=== PATIENT | female | born 1950 | race Caucasian/White ===

== ENCOUNTER → 2018-12-03 | Day surgery (SDC) | payer MEDICARE ==
[2018-11-27 12:40] VITALS: BMI 33.2
[~2018-12-03] MED LIST: LIDOCAINE 1% INJ 10MG/ML (20 ML MDV) SQ ONE; MIDAZOLAM 2 MG/2 ML VIAL IV ONE; SODIUM CHLORIDE 0.9% 1,000 ML IV SCH; ceFAZolin IN SWFI 2 GM/20 ML SYRINGE IVP ONE
[2018-12-03 10:52] VITALS: RESP 18; TEMP 98.1
--- NOTE | 2018-12-03 12:29 | P.PCN ---
Preoperative Diagnosis: Loop explant under sedation and local anesthesia. Patient was brought to the EP lab in a fasting state. Written informed consent was obtained prior to the procedure. The subcutaneous device was successfully explanted under local anesthesia. Preoperative antibiotics were administered. The wound was closed in layers and dressed per protocol. Result: Successful loop monitor explantation. Patient underwent EP procedure under conscious sedation/moderate sedation, monitoring of the level of consciousness and physiologic parameters including but not limited to vital signs and oxygenation. Patient tolerated the procedure well without any acute complications. Start time: 1208 Stop time: 1216
[2018-12-03 13:19] VITALS: BP 133/65; PULSE 74
== END | disposition home or self-care (01) ==
LOC: CATHEP 10:06
PROVIDERS: ATTEND Internal Medicine Clinical Cardiac Electrophysiology
DX: I63.9 Cerebral infarction, unspecified (principal); Z79.82 Long term (current) use of aspirin; Z79.899 Other long term (current) drug therapy; E78.5 Hyperlipidemia, unspecified; F17.210 Nicotine dependence, cigarettes, uncomplicated; Z91.040 Latex allergy status
CPT/HCPCS: 33286; J2250; J2001; J0690

== ENCOUNTER → 2018-12-03 | Outpatient (CLI) | payer MEDICARE ==
[2018-12-03 11:13] LABS: Basophils # (A) 0.1 k/uL (0-0.2); Basophils % (A) 1 %; Eosinophils # (A) 0.2 k/uL (0-0.7); Eosinophils % (A) 3 %; HCT 47.6 % (34.0-46.0); Lymphocytes # (A) 1.7 k/uL (1.0-4.8); Lymphocytes % (A) 23 %; MCHC 31.5 g/dL (31.0-37.0); Mean Platelet Volume 7.7; Monocytes # (A) 0.5 k/uL (0-1.0); Monocytes % (A) 6 %; Neutrophils # (A) 4.8 k/uL (1.3-7.7); Neutrophils % (A) 65 %; Platelet Count 261 k/uL (150-450); RBC 5.18 m/uL (3.80-5.40); RDW 13.9 % (11.5-15.5); WBC 7.4 k/uL (3.8-10.6)
[2018-12-03 19:29] LABS: Iron Saturation 18.27 (12.00-45.00)
== END ==
LOC: LABWHC1 10:11
PROVIDERS: ATTEND Family Medicine
DX: D64.9 Anemia, unspecified (principal)
CPT/HCPCS: 36415; 82728; 83540; 83550; 85025

== ENCOUNTER 2023-01-03 16:11 | Emergency (ER) | payer MEDICARE ==
[2023-01-03] MEDS ORDERED: PANTOPRAZOLE 40 MG/10 ML VIAL IVP STA (17:37)
[2023-01-03] MEDS ORDERED: SODIUM CHLORIDE 0.9% 1,000 ML IV ONE (17:37)
[2023-01-03 18:01] VITALS: RESP 17
--- NOTE | 2023-01-03 18:05 | XR ---
EXAMINATION TYPE: XR chest 2V DATE OF EXAM: 01/03/2023 5:53 PM COMPARISON: Chest radiographs from 09/09/2015 TECHNIQUE: XR chest 2V Frontal and lateral views of the chest. CLINICAL INDICATION:Female, 72 years old with history of gi bleed; FINDINGS: Lungs/Pleura: There is flattening of the diaphragm with increased lucency of the lungs. No evidence o f pneumothorax or focal consolidation. The left pleural effusion. Pulmonary vascularity: Unremarkable. Heart/mediastinum: Cardiomediastinal silhouette is unremarkable. Atherosclerotic calcifications are seen in the aorta. Musculoskeletal: No acute osseous pathology. IMPRESSION: Left pleural effusion, otherwise No acute cardiopulmonary disease/process. COPD changes.
[2023-01-03 18:18] LABS: Basophils % (A) 0 %; Eosinophils % (A) 0 %; HCT 44.3 % (34.0-46.0); HGB 15.4 gm/dL (11.4-16.0); Lymphocytes # (A) 1.1 k/uL (1.0-4.8); Lymphocytes % (A) 9 %; MCH 30.7 pg (25.0-35.0); MCHC 34.7 g/dL (31.0-37.0); MCV 88.5 fL (80.0-100.0); Mean Platelet Volume 9.4; Monocytes # (A) 0.8 k/uL (0-1.0); Monocytes % (A) 7 %; Neutrophils % (A) 82 %; Platelet Count 273 k/uL (150-450); RBC 5.01 m/uL (3.80-5.40); RDW 12.4 % (11.5-15.5); WBC 12.2 k/uL (3.8-10.6)
[2023-01-03 18:27] LABS: INR 1.1 (<1.2); Partial Thromboplastin Time 22.1 sec (22.0-30.0); Prothrombin Time 11.6 sec (9.0-12.0)
[2023-01-03] MEDS ORDERED: ONDANSETRON 4 MG/2 ML VIAL IVP STA (18:30)
[2023-01-03] MEDS ORDERED: MORPHINE SULFATE 2 MG/ML SYRINGE IVP ONE (18:30)
[2023-01-03 18:31] LABS: Albumin 3.6 g/dL (3.5-5.0); Potassium 3.8 mmol/L (3.5-5.1); Total Bilirubin 0.6 mg/dL (0.2-1.3); Total Protein 6.9 g/dL (6.3-8.2)
[2023-01-03 19:19] VITALS: PULSE 106
--- NOTE | 2023-01-03 19:36 | ED ---
General Adult HPI - General Chief complaint: GI Bleed Stated complaint: vomiting Time Seen by Provider: 01/03/23 17:28 Source: patient, RN notes reviewed Mode of arrival: ambulatory Limitations: no limitations - History of Present Illness Initial comments: 72-year-old female presents to the emergency department with a chief complaint of hematemesis 3 days. She is complaining of dark black coffee ground vomit. She denies any dizziness, lightheadedness, chest pain, shortness of breath. She is complaining of epigastric pain. She reports that she has not had a bowel movement in 3 days as well. She denies any melena, hematochezia. - Related Data Home Medications Medication Instructions Recorded Confirmed Omeprazole [PriLOSEC] 10 mg PO AC-BRKFST 09/09/15 12/03/18 Albuterol Sulfate [Proair Hfa] 1 - 2 puff INHALATION Q6HR PRN 11/27/18 12/03/18 Aspirin [Adult Low Dose Aspirin EC] 81 mg PO DAILY 11/27/18 12/03/18 Cetirizine HCl [Zyrtec] 10 mg PO DAILY 11/27/18 12/03/18 Cholecalciferol (Vitamin D3) 2,000 unit PO DAILY 11/27/18 12/03/18 [Vitamin D3] Ferrous Sulfate [Iron (65 MG 1 tab PO WESA 11/27/18 12/03/18 Elemental)] Latanoprost/Pf [Latanoprost 0.005% 1 drop BOTH EYES HS 11/27/18 12/03/18 Eye Drop] Lovastatin [Mevacor] 10 mg PO HS 11/27/18 12/03/18 Magnesium 400 mg PO HS 11/27/18 Metoprolol Succinate [Toprol XL] 25 mg PO HS 11/27/18 12/03/18 Montelukast [Singulair] 10 mg PO HS 11/27/18 12/03/18 Allergies Allergy/AdvReac Type Severity Reaction Status Date / Time Iodinated Contrast Media Allergy Itching Verified 12/03/18 10:38 [Iodinated Contrast Media - IV Dye] shellfish derived [Shellfish] Allergy Itching Verified 01/03/23 17:01 Review of Systems ROS Statement: Those systems with pertinent positive or pertinent negative responses have been documented in the HPI. ROS Other: All systems not noted in ROS Statement are negative. 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 TERRY, LOOP RECORDER 09/09/15 Past Anesthesia/Blood Transfusion Reactions: No Reported Reaction Type of Cardiac Device: Loop Past Psychological History: No Psychological Hx Reported Smoking Status: Current every day smoker Past Alcohol Use History: None Reported Past Drug Use History: None Reported - Past Family History Mother Family Medical History: Cancer, Hypertension Additional Family Medical History / Comment(s): thyroid cancer and thyroid irradiation, Sister(s) Family Medical History: COPD Brother(s) Family Medical History: No Reported History Daughter(s) Family Medical History: No Reported History General Exam Limitations: no limitations General appearance: alert, in no apparent distress Head exam: Present: atraumatic, normocephalic, normal inspection Eye exam: Present: normal appearance, PERRL, EOMI. Absent: scleral icterus, conjunctival injection, periorbital swelling ENT exam: Present: normal exam, mucous membranes moist Neck exam: Present: normal inspection. Absent: tenderness, meningismus, lymphadenopathy Respiratory exam: Present: normal lung sounds bilaterally. Absent: respiratory distress, wheezes, rales, rhonchi, stridor Cardiovascular Exam: Present: regular rate, normal rhythm, normal heart sounds. Absent: systolic murmur, diastolic murmur, rubs, gallop, clicks GI/Abdominal exam: Present: soft, tenderness (mild epigastric), normal bowel sounds. Absent: distended, guarding, rebound, rigid Extremities exam: Present: normal inspection, full ROM, normal capillary refill. Absent: tenderness, pedal edema, joint swelling, calf tenderness Back exam: Present: normal inspection Neurological exam: Present: alert, oriented X3, CN II-XII intact Psychiatric exam: Present: normal affect, normal mood Skin exam: Present: warm, dry, intact, normal color. Absent: rash Course Vital Signs 01/03/23 01/03/23 01/03/23 16:57 18:00 19:19 Temperature 98.4 F Pulse Rate 125 H 112 H 106 H Respiratory 20 17 17 Rate Blood Pressure 96/73 121/68 111/70 O2 Sat by Pulse 97 95 94 L Oximetry 01/03/23 20:24 Temperature 98.0 F Pulse Rate 106 H Respiratory 17 Rate Blood Pressure 110/61 O2 Sat by Pulse 94 L Oximetry - Reevaluation(s) Reevaluation #1: 01/03/23 19:[address] Jaeger, ER physician at [facility] who agrees and accepts the patient for admission Reevaluation #2: 01/03/23 19:[address] Jaeger, ER attending physician who agrees and accepts the patient for ER to ER transfer 01/03/23 19:[address] Newman, GI specialist who agrees and accepts the patient for GI consult EKG Findings - EKG Comments: EKG Findings:: I interpreted the following EKG performed at 18:39. Heart rate 10 2 bpm and sinus tachycardia. DE interval 157, QRS duration 71, QT/QTc 337/396 Medical Decision Making - Medical Decision Making Was pt. sent in by a medical professional or institution (, PA, IMPACT HAMMER OPERATOR, urgent care, hospital, or usp...) When possible be specific @ -[No] Did you speak to anyone other than the patient for history (EMS, parent, family, police, friend...)? What history was obtained from this source @ -[No] Did you review nursing and triage notes (agree or disagree)? Why? @ -[I reviewed and agree with nursing and triage notes] Were old charts reviewed (outside hosp., previous admission, EMS record, old EKG, old radiological studies, urgent care reports/EKG's, usp records)? Report findings @ -[No old charts were reviewed] Differential Diagnosis (chest pain, altered mental status, abdominal pain women, abdominal pain men, vaginal bleeding, weakness, fever, dyspnea, syncope, headache, dizziness, GI bleed, back pain, seizure, CVA, palpatations, mental health, musculoskeletal)? @ -[not applicable] EKG interpreted by me (3pts min.). @ -[As above] X-rays interpreted by me (1pt min.). @ -X-ray negative for any acute internal pleural process or evidence of perforation CT interpreted by me (1pt min.). @ -[None done] U/S interpreted by me (1pt. min.). @ -[None done] What testing was considered but not performed or refused? (CT, X-rays, U/S, labs)? Why? @ -[None] What meds were considered but not given or refused? Why? @ -[None] Did you discuss the management of the patient with other professionals ( professionals i.e. , PA, IMPACT HAMMER OPERATOR, lab, RT, psych nurse, social worker psychiatric, tea and spice supervisor, teacher, consumer loan officer, community case manager)? Give summary @ -[No] Was smoking cessation discussed for >3mins.? @ -[No] Was critical care preformed (if so, how long)? @ -[No] Were there social determinants of health that impacted care today? How? (Homelessness, low income, unemployed, alcoholism, drug addiction, t ransportation, low edu. Level, literacy, decrease access to med. care, intermediate, rehab)? @ -[No] Was there de-escalation of care discussed even if they declined (Discuss DNR or withdrawal of care, Hospice)? DNR status @ -[No] What co-morbidities impacted this encounter? (DM, HTN, Smoking, COPD, CAD, Cancer, CVA, ARF, Chemo, Hep., AIDS, mental health diagnosis, sleep apnea, morbid obesity)? @ -[None] Was patient admitted / discharged? Hospital course, mention meds given and route, prescriptions, significant lab abnormalities, going to OR and other pertinent info. @ -Transfer to [facility]. This is a 72 presents to the emergency department with upper GI bleed. Patient had a thorough history and physical exam performed on the ED. Physical exam reveals heart rate tachycardic in the 110's. Lungs clear to auscultation bilaterally abdomen is soft however there is mild epigastric tenderness. Patient was given 1 L IV fluids and Protonix, morphine and Zofran while in the ED with symptomatic relief. Patient's hemoglobin is 14.8. Other lab work unremarkable. Due to the mechanism of the patient's chief complaint and no GI coverage it is my decision to transfer the patient to [facility] for continuation of care. Patient was strongly encouraged to be transported to another hospital facility via EMS however refused and reports that she will go there via private auto. Case discussed with Dr. Jaeger in Dr. [facility] who agrees except the patient for transfer. Discussed with JOJO Chowdhury who agrees with plan of care Undiagnosed new problem with uncertain prognosis? @ -[No] Drug Therapy requiring intensive monitoring for toxicity (Heparin, Nitro, Insulin, Cardizem)? @ -[No] Were any procedures done? @ -[No] Diagnosis/symptom? @ -upper GI bleed Acute, or Chronic, or Acute on Chronic? @ -acute Uncomplicated (without systemic symptoms) or Complicated (systemic symptoms)? @ -uncomplicated Side effects of treatment? @ -[No] Exacerbation, Progression, or Severe Exacerbation? @ -[No] Poses a threat to life or bodily function? How? (Chest pain, USA, NV, pneumonia, PE, COPD, DKA, ARF, appy, cholecystitis, CVA, Diverticulitis, Homicidal, Suicidal, threat to staff... and all critical care pts) @ -high likelihood - Lab Data Result diagrams: 01/03/23 17:49 01/03/23 17:49 Lab Results 01/03/23 01/03/23 01/03/23 Range/Units 17:35 17:40 17:49 WBC 12.2 H (3.8-10.6) k/uL RBC 5.01 (3.80-5.40) m/uL Hgb 15.4 (11.4-16.0) gm/dL Hct 44.3 (34.0-46.0) % MCV 88.5 (80.0-100.0) fL MCH 30.7 (25.0-35.0) pg MCHC 34.7 (31.0-37.0) g/dL RDW 12.4 (11.5-15.5) % Plt Count 273 (150-450) k/uL MPV 9.4 Neutrophils % 82 % Lymphocytes % 9 % Monocytes % 7 % Eosinophils % 0 % Basophils % 0 % Neutrophils # 10.0 H (1.3-7.7) k/uL Lymphocytes # 1.1 (1.0-4.8) k/uL Monocytes # 0.8 (0-1.0) k/uL Eosinophils # 0.0 (0-0.7) k/uL Basophils # 0.0 (0-0.2) k/uL PT (9.0-12.0) sec INR (<1.2) APTT (22.0-30.0) sec Sodium (137-145) mmol/L Potassium (3.5-5.1) mmol/L Chloride (98-107) mmol/L Carbon Dioxide (22-30) mmol/L Anion Gap mmol/L BUN (7-17) mg/dL Creatinine (0.52-1.04) mg/dL Est GFR (CKD-EPI)AfAm (>60 ml/min/1.73 sqM) Est GFR (CKD-EPI)NonAf (>60 ml/min/1.73 sqM) Glucose (74-99) mg/dL Calcium (8.4-10.2) mg/dL Total Bilirubin (0.2-1.3) mg/dL AST (14-36) U/L ALT (4-34) U/L Alkaline Phosphatase (38-126) U/L Total Protein (6.3-8.2) g/dL Albumin (3.5-5.0) g/dL Blood Type AB Negative Blood Type Confirm AB Negative Blood Type Recheck No Previous Record Bld Type Recheck Status CABO Indicated Antibody Screen NEGATIVE Spec Expiration Date 01/06/2023 - 233901/03/23 01/03/23 Range/Units 17:49 17:49 WBC (3.8-10.6) k/uL RBC (3.80-5.40) m/uL Hgb (11.4-16.0) gm/dL Hct (34.0-46.0) % MCV (80.0-100.0) fL MCH (25.0-35.0) pg MCHC (31.0-37.0) g/dL RDW (11.5-15.5) % Plt Count (150-450) k/uL MPV Neutrophils % % Lymphocytes % % Monocytes % % Eosinophils % % Basophils % % Neutrophils # (1.3-7.7) k/uL Lymphocytes # (1.0-4.8) k/uL Monocytes # (0-1.0) k/uL Eosinophils # (0-0.7) k/uL Basophils # (0-0.2) k/uL PT 11.6 (9.0-12.0) sec INR 1.1 (<1.2) APTT 22.1 (22.0-30.0) sec Sodium 135 L (137-145) mmol/L Potassium 3.8 (3.5-5.1) mmol/L Chloride 88 L (98-107) mmol/L Carbon Dioxide 37 H (22-30) mmol/L Anion Gap 10 mmol/L BUN 25 H (7-17) mg/dL Creatinine 0.94 (0.52-1.04) mg/dL Est GFR (CKD-EPI)AfAm 70 (>60 ml/min/1.73 sqM) Est GFR (CKD-EPI)NonAf 61 (>60 ml/min/1.73 sqM) Glucose 152 H (74-99) mg/dL Calcium 9.0 (8.4-10.2) mg/dL Total Bilirubin 0.6 (0.2-1.3) mg/dL AST 38 H (14-36) U/L ALT 26 (4-34) U/L Alkaline Phosphatase 140 H (38-126) U/L Total Protein 6.9 (6.3-8.2) g/dL Albumin 3.6 (3.5-5.0) g/dL Blood Type Blood Type Confirm Blood Type Recheck Bld Type Recheck Status Antibody Screen Spec Expiration Date Disposition Clinical Impression: Upper GI bleed Disposition: OTHER INSTITUTION NOT DEFINED Condition: Fair Instructions (If sedation given, give patient instructions): Gastrointestinal Bleeding (ED) Additional Instructions: Please tried to [facility] for continuation of care Is patient prescribed a controlled substance at d/c from ED?: No Referrals: Jaerd Anderson MD [Primary Care Provider] - 1-2 days Time of Disposition: 20:13 - Out of Hospital Transfer - Req. Specs Out of Hospital Transfer - Requested Specifics: Other Emergency Center ([facility])
[2023-01-03 20:24] VITALS: BP 110/61; TEMP 98
== END 2023-01-03 20:32 | disposition other institution (70) ==
LOC: EC 16:11
DX: K92.2 Gastrointestinal hemorrhage, unspecified (principal); K21.9 Gastro-esophageal reflux disease without esophagitis; M19.90 Unspecified osteoarthritis, unspecified site; E07.9 Disorder of thyroid, unspecified; Z86.73 Personal history of transient ischemic attack (TIA), and cerebral infarction without residual deficits; F17.200 Nicotine dependence, unspecified, uncomplicated; Z91.041 Radiographic dye allergy status; Z91.013 Allergy to seafood; Z79.899 Other long term (current) drug therapy; Z79.82 Long term (current) use of aspirin
CPT/HCPCS: 36415; 93005; 86900; 86901; 80053; 85025; 85610; 85730; 86850; 71046; 99285; 96374; 96375 ×2; 96361; J2405; J2270; C9113

== ENCOUNTER 2023-01-26 09:24 | Inpatient (IN) | payer MEDICAID ==
[2023-01-26] MEDS ORDERED: METOCLOPRAMIDE 5 MG/ML 2 ML VIAL IVP PRN (09:26)
[2023-01-26] MEDS ORDERED: ONDANSETRON 4 MG/2 ML VIAL IVP PRN (09:26)
[2023-01-26] MEDS ORDERED: ATROPINE OPHTH SOLN 1% 5ML BTL SUBLINGUAL PRN (09:26)
[2023-01-26] MEDS ORDERED: ACETAMINOPHEN SUPPOSITORY 650 MG SUPP RECTAL PRN (09:26)
[2023-01-26] MEDS ORDERED: DRY MOUTH SPRAY 44.3 SPRAY/44.3 ML SPRAY MUCOUS MEM PRN (09:26)
[2023-01-26] MEDS ORDERED: GLYCOPYRROLATE 0.2 MG/ML 2 ML VIAL IVP PRN (09:26)
[2023-01-26] MEDS ORDERED: LORazepam 2 MG/ML INJ IV PRN ×2 (09:26→15:25)
[2023-01-26] MEDS ORDERED: SODIUM CHLORIDE 0.9% 1,000 ML IV SCH (09:30)
[2023-01-26] MEDS ORDERED: MORPHINE SULFATE (100 MG/2 ML) 100 MG in SODIUM CHLORIDE 0.9% 100 ML IV SCH (09:30)
[2023-01-26] MEDS ORDERED: SCOPOLAMINE 1 MG/72 HR PATCH TRANSDERM SCH (09:30)
[2023-01-26] MEDS: MORPHINE SULFATE 2 MG/ML SYRINGE IV PRN ×2 (11:21→14:24)
--- NOTE | 2023-01-26 14:39 | P.HPIM ---
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 Patient and family have decided on [facility] hospice and initially were to go home this morning after equipment pain pump being arranged although patient's respiratory status declined requiring nonrebreather and clinically unstable to discharge home safely. Patient has not GIP criteria and is now agreeable to have hospice services while inpatient. [facility] following the patient is being started on comfort care measures only. Review Of Systems: Constitutional: No fever, no chills, no night sweats. No weight change. Reports severe weakness, fatigue . No daytime sleepiness. EENT: No headache. No blurred vision or double vision, no loss of vision. No loss of Hearing, no ringing in the ears, no dizziness. No nasal drainage or congestion. No epistaxis. No sore throat. Lungs: Reports extreme shortness of breath, weak cough, no sputum production. No wheezing. Cardiovascular: No chest pain, no lower extremity edema. No palpitations. No paroxysmal nocturnal dyspnea. No orthopnea. No lightheadedness or dizziness. No syncopal episodes. Abdominal: No abdominal pain. No nausea, vomiting. No diarrhea. No constipation. No bloody or tarry stools.. No loss of appetite. Genitourinary: No dysuria, increased frequency, urgency. No urinary retention. Musculoskeletal: No myalgias. Reports extreme muscle weakness, gait dysfunction, no frequent falls. Reports back pain. No neck pain. Integumentary: No wounds, no lesions. No rash or pruritus. No unusual bruising. No change in hair or nails. Neurologic: No aphasia. No facial droop. No change in mentation. No head injury. No headache. No paralysis. No paresthesia. Psychiatric: No depression. No anxiety. No mood swings. Endocrine: No abnormal blood sugars. No weight change. No excessive sweating or thirst. No cold intolerance. PHYSICAL EXAMINATION: GENERAL: The patient is alert and oriented x4, ill-appearing, fatigued, pale HEENT: Pupils are round and equally reacting to light. EOMI. no scleral icterus. No conjunctival pallor. Normocephalic, atraumatic. No pharyngeal erythema. No thyromegaly. CARDIOVASCULAR: S1 and S2 muffled, tachycardic PULMONARY: diminished breath sounds bilaterally with scattered rhonchi and crackles noted. ABDOMEN: soft. Nontender on exam. distended, sluggish bowel sounds. No palpable organomegaly. MUSCULOSKELETAL: No joint swelling or deformity. EXTREMITIES: No cyanosis, clubbing, or pedal edema. NEUROLOGICAL: Gross neurological examination did not reveal any focal deficits. Diffuse weakness SKIN: No rashes. Assessment: Esophageal cancer with metastasis to the liver severe dehydration, present on admission Severe dysphasia secondary to esophageal cancer Elevated WBC Compression fracture of T6,T9 as noted on CT imaging of [facility] acute renal failure, most likely secondary to poor oral intake Gastroesophageal reflux disease Degenerative joint disease history of hypothyroidism Depression no code Plan: Patient was originally supposed to go home with hospice [facility] services comfort measures only although patient clinically declined requiring more oxygen demand and unstable and has met for GIP criteria. Comfort care order placed in being arranged to start morphine drip with family members arriving. Patient is agreeable with this as well as family members at bedside. Overall prognosis is extremely poor and will continue to follow with [facility] The impression and plan of care has been dictated by Lauren Malhotra, nurse practitioner as directed. Dr. Charles MD I have performed a history and examination and MDM of this patient, discussed the same with the dictator, and agree with the dictator's assessment and plan as written ,documented as a scribe. Based on total visit time, I have performed more than 50% of the visit. Any additional findings or plans will be noted. 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 TERRY, LOOP RECORDER 09/09/15 Past Anesthesia/Blood Transfusion Reactions: No Reported Reaction Type of Cardiac Device: Loop Smoking Status: Former smoker - Past Family History Mother Family Medical History: Cancer, Hypertension Additional Family Medical History / Comment(s): thyroid cancer and thyroid irradiation, Sister(s) Family Medical History: COPD Brother(s) Family Medical History: No Reported History Daughter(s) Family Medical History: No Reported History Medications and Allergies Home Medications Medication Instructions Recorded Confirmed Type Cholecalciferol (Vitamin D3) 50 mcg PO DAILY 11/27/18 01/26/23 History [Vitamin D3] Ferrous Sulfate [Iron (65 MG 325 mg PO DAILY 11/27/18 01/26/23 History Elemental)] Latanoprost/Pf [Latanoprost 0.005% 1 drop BOTH EYES HS 11/27/18 01/26/23 History Eye Drop] Metoprolol Succinate [Toprol XL] 25 mg PO DAILY 11/27/18 01/26/23 History Montelukast [Singulair] 10 mg PO HS 11/27/18 01/26/23 History Atorvastatin [Lipitor] 20 mg PO HS 01/17/23 01/26/23 History Citalopram Hydrobromide [CeleXA] 20 mg PO DAILY 01/17/23 01/26/23 History HYDROcodone/APAP 7.5-325MG [[place] 1 tab PO Q4H PRN 01/17/23 01/26/23 History 7.5-325] Ketorolac 0.5% Ophth Soln [Acular 1 drop BOTH EYES BID 01/17/23 01/26/23 History 0.5%] Lactulose 20 gm PO BID PRN 01/17/23 01/26/23 History Magnesium Oxide [Mag-Ox] 400 mg PO DAILY 01/17/23 01/26/23 History Omeprazole 20 mg PO DAILY 01/17/23 01/26/23 History Ondansetron [Zofran] 4 mg PO Q6H PRN 01/17/23 01/26/23 History prednisoLONE ACETATE 1% OPHTH 1 drop BOTH EYES BID 01/17/23 01/26/23 History [Pred Forte 1%] Allergies Allergy/AdvReac Type Severity Reaction Status Date / Time Iodinated Contrast Media Allergy Itching Verified 01/26/23 10:55 [Iodinated Contrast Media - IV Dye] shellfish derived [Shellfish] Allergy Itching Verified 01/26/23 10:55 Physical Exam Vitals: Intake and Output 01/25/23 01/26/23 01/26/23 22:59 06:59 14:59 Intake Total 1.003 Balance 1.003 Intake: Intake, IV Titration 1.003 Amount Morphine Sulfate (100 mg/ 1.003 2 ml) 100 mg In Sodium Chloride 0.9% 100 ml @ 1 MG/HR 1.02 mls/hr IV . Q24H [facility] Rx#:[id number] Other: Weight 74 kg Assessment and Plan Time with Patient: Greater than 30
--- NOTE | 2023-01-27 15:52 | P.DS ---
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 According to nursing documentation, time of was 2014 on 01/26/2023. Family was present and patient was GIP with [facility] hospice services comfort measures only Hospital course This is a very pleasant 72-year-old female who was recently admitted at [facility] for concerns of GI bleed and found to have esophageal cancer with multiple lesions noted on the liver most likely metastasis and initially family wanted liver biopsy although discussed further with interventional radiology as well as oncology and there were no plans for this. Patient then met with [facility] hospice and initially wanted to go home with hospice services comfort measures only although declined overnight requiring more oxygen and not GIP criteria and was now agreeable to stay in hospital with comfort measures only and was placed on morphine drip. Multiple family members present. Per nursing documentation time of was 2014 on 01/26/2023. Please refer to previous documentations for further HPI The impression and plan of care has been dictated by Lauren Malhotra, Nurse Practitioner as directed. Dr. Charles MD I have performed a history and examination and MDM of this patient, discussed the same with the dictator, and agree with the dictator's assessment and plan as written ,documented as a scribe. Based on total visit time, I have performed more than 50% of the visit. Patient Condition at Discharge: Poor Plan - Discharge Summary New Discharge Prescriptions: No Action Montelukast [Singulair] 10 mg PO HS Metoprolol Succinate [Toprol XL] 25 mg PO DAILY Latanoprost/Pf [Latanoprost 0.005% Eye Drop] 1 drop BOTH EYES HS Ferrous Sulfate [Iron (65 MG Elemental)] 325 mg PO DAILY Cholecalciferol (Vitamin D3) [Vitamin D3] 50 mcg PO DAILY Atorvastatin [Lipitor] 20 mg PO HS HYDROcodone/APAP 7.5-325MG [Kerrick 7.5-325] 1 tab PO Q4H PRN PRN Reason: Pain Ketorolac 0.5% Ophth Soln [Acular 0.5%] 1 drop BOTH EYES BID Omeprazole 20 mg PO DAILY Ondansetron [Zofran] 4 mg PO Q6H PRN PRN Reason: Nausea prednisoLONE ACETATE 1% OPHTH [Pred Forte 1%] 1 drop BOTH EYES BID Lactulose 20 gm PO BID PRN PRN Reason: Constipation Citalopram Hydrobromide [CeleXA] 20 mg PO DAILY Magnesium Oxide [Mag-Ox] 400 mg PO DAILY Discharge Medication List Cholecalciferol (Vitamin D3) [Vitamin D3] 50 mcg PO DAILY 11/27/18 [History] Ferrous Sulfate [Iron (65 MG Elemental)] 325 mg PO DAILY 11/27/18 [History] Latanoprost/Pf [Latanoprost 0.005% Eye Drop] 1 drop BOTH EYES HS 11/27/18 [History] Metoprolol Succinate [Toprol XL] 25 mg PO DAILY 11/27/18 [History] Montelukast [Singulair] 10 mg PO HS 11/27/18 [History] Atorvastatin [Lipitor] 20 mg PO HS 01/17/23 [History] Citalopram Hydrobromide [CeleXA] 20 mg PO DAILY 01/17/23 [History] HYDROcodone/APAP 7.5-325MG [Kerrick 7.5-325] 1 tab PO Q4H PRN 01/17/23 [History] Ketorolac 0.5% Ophth Soln [Acular 0.5%] 1 drop BOTH EYES BID 01/17/23 [History] Lactulose 20 gm PO BID PRN 01/17/23 [History] Magnesium Oxide [Mag-Ox] 400 mg PO DAILY 01/17/23 [History] Omeprazole 20 mg PO DAILY 01/17/23 [History] Ondansetron [Zofran] 4 mg PO Q6H PRN 01/17/23 [History] prednisoLONE ACETATE 1% OPHTH [Pred Forte 1%] 1 drop BOTH EYES BID 01/17/23 [History] Discharge Disposition: - Preliminary Cause of Preliminary Cause of : Esophageal cancer
== END 2023-01-26 23:55 | disposition expired | DRG 951 ==
LOC: 5NMEDONC 09:46
PROVIDERS: ADMIT Hospitalist; ATTEND Hospitalist
DX: Z51.5 Encounter for palliative care (principal); C15.9 Malignant neoplasm of esophagus, unspecified; C78.7 Secondary malignant neoplasm of liver and intrahepatic bile duct; M48.54XA Collapsed vertebra, not elsewhere classified, thoracic region, initial encounter for fracture; N17.9 Acute kidney failure, unspecified; E86.0 Dehydration; R47.02 Dysphasia; D72.829 Elevated white blood cell count, unspecified; K21.9 Gastro-esophageal reflux disease without esophagitis; M19.90 Unspecified osteoarthritis, unspecified site; K44.9 Diaphragmatic hernia without obstruction or gangrene; E03.9 Hypothyroidism, unspecified; F32.A Depression, unspecified; Z66 Do not resuscitate; I69.334 Monoplegia of upper limb following cerebral infarction affecting left non-dominant side; Z87.891 Personal history of nicotine dependence; Z85.820 Personal history of malignant melanoma of skin; Z79.899 Other long term (current) drug therapy; Z91.041 Radiographic dye allergy status